=== PATIENT | female | born 1960 | race Caucasian/White ===

== ENCOUNTER → 2016-12-09 | Outpatient (REF) ==
[2016-12-09 07:42] LABS: MEAN CORPUSCULAR HEMOGLOBIN 29.5 pg (27.0-33.0); MEAN CORPUSCULAR HGB CONC 33.1 g/dl (32.0-36.5); RED CELL DISTRIBUTION WIDTH 12.8 % (11.5-14.5); WHITE BLOOD COUNT 7.3 K/mm3 (4.0-10.0)
[2016-12-09 08:11] LABS: ANION GAP 5 MEQ/L (8-16); BLOOD UREA NITROGEN 13 MG/DL (7-18); CARBON DIOXIDE LEVEL 27 MEQ/L (21-32); CHLORIDE LEVEL 106 MEQ/L (98-107); CHOLESTEROL LEVEL 221 MG/DL (<200); CREATININE FOR GFR 0.71 MG/DL (0.55-1.02); GLOMERULAR FILTRATION RATE > 60.0 (>51); GLUCOSE, FASTING 93 MG/DL (70-105); POTASSIUM SERUM 4.8 MEQ/L (3.5-5.1); SODIUM LEVEL 138 MEQ/L (136-145); TRIGLYCERIDES LEVEL 96 MG/DL (<150)
--- NOTE | 2016-12-09 08:17 | REP ---
Clinical: Employee health annual physical . Comparison: 03/02/2016 . Technique: PA and lateral. Findings: The mediastinum and cardiac silhouette are normal. The lung yu are clear and without acute consolidation, effusion, or pneumothorax. The skeletal structures are intact and normal. Impression: 1. No acute cardiopulmonary process. Signed by Mikel Brown MD 12/09/2016 08:09 A
[2016-12-09 10:01] LABS: HEPATITIS B SURFACE ANTIBODY POSITIVE (POSITIVE)
--- NOTE | 2016-12-10 01:02 | ECGEPIP ---
Stationary ECG Study [facility] Test Date: 2016-12-09 Pat Name: BRIAN CHARLES Department: Room: - Gender: F Compliance Representative: JOAN : 1960 Requested By: Susan Srivastava PT Order Number: [id number] Reading MD: Liam James Measurements Intervals [place] Rate: 85 P: 29 NM: 170 QRS: -5 QRSD: 103 T: 51 QT: 386 QTc: 460 Interpretive Statements SINUS RHYTHM INFERIOR MYOCARDIAL INFARCTION, OF INDETERMINATE AGE Possible prior anteroseptal infarct Compared to the last 2 tracings, no significant changes Electronically Signed On 12-10-2016 1:02:24 EDT by Liam James
== END ==
LOC: M LAB 06:50
PROVIDERS: ATTEND Physical Therapist
DX: Z02.1 Encounter for pre-employment examination (principal); I25.2 Old myocardial infarction; R94.31 Abnormal electrocardiogram [ECG] [EKG]

== ENCOUNTER 2017-01-22 06:12 | Day surgery (SDC) | payer OTHER ==
[~2017-01-22] VITALS: Ht 162.6 cm; Wt 74.8 kg
[~2017-01-22 06:12] MED LIST: LISI40TAB PO
[2017-01-22] MEDS ORDERED: LR 1,000 ML IV SCH (06:30)
[2017-01-22] MEDS ORDERED: LIDOCAINE 2% MDV 20 ML VIAL As Ordered ONE (06:36)
[2017-01-22] MEDS ORDERED: BACITRACIN PWD 50,000 UNITS VIAL As Ordered ONE (06:37)
[2017-01-22] MEDS ORDERED: dexameTHASONE 4 MG/ML 1ML VIAL (J1100) As Ordered ONE ×2 (06:37→08:03)
[2017-01-22] MEDS ORDERED: BUPIVACAINE HCL 0.5% 30 ML VIAL As Ordered ONE (06:37)
[2017-01-22] MEDS ORDERED: NEOSPORIN GU IRRIG 20 ML VIAL As Ordered ONE (06:37)
[2017-01-22] MEDS ORDERED: PROPOFOL 200 MG/20 ML VIAL As Ordered ONE ×2 (07:23→08:59)
[2017-01-22] MEDS ORDERED: fentaNYL 100 MCG/2 ML INJECTION (J3010) As Ordered ONE (07:24)
[2017-01-22] MEDS ORDERED: MIDAZOLAM INJ 2 MG/2 ML VIAL (J2250) As Ordered ONE (07:24)
[2017-01-22] MEDS ORDERED: KETAMINE HCL 200 MG/20 ML VIAL As Ordered ONE (07:38)
[2017-01-22] MEDS ORDERED: ONDANSETRON 4MG/2ML VIAL (J2405) As Ordered ONE (08:03)
[2017-01-22] MEDS ORDERED: KETOROLAC 60 MG/2 ML VIAL (J1885) As Ordered ONE (08:03)
[2017-01-22] MEDS ORDERED: PHENYLephrine HCL 500 MCG/5 ML (100MCG/ML) SYRINGE (J2370) As Ordered ONE (08:28)
[2017-01-22] MEDS ORDERED: ePHEDrine SULFATE 25 MG/5 ML(5MG/ML) SYRINGE As Ordered ONE (08:31)
[2017-01-22] MEDS ORDERED: HYDROmorphone HCL 2 MG/ML 1ML VIAL (J1170) As Ordered ONE (09:18)
[2017-01-22] MEDS ORDERED: PERCOCET 5MG/325MG TAB PO PRN (10:30)
[2017-01-22 11:30] VITALS: BP 131/89
--- NOTE | 2017-01-22 11:43 | REP ---
REASON: Status post bunionectomy. There is an internal fixation plate with affixing screws fusing the 1st tarsometatarsal joint. Postop change is seen involving the head of the 1st metatarsal. There is a fixation pin affixing the middle and proximal phalanges of the 2nd digit and a derotational osteotomy screw seen in the head of the 2nd metatarsal. Signed by Edvin Nunez DO 01/22/2017 01:57 P
--- NOTE | 2017-01-24 09:41 | RO ---
DATE OF PROCEDURE: 01/22/2017 PREOPERATIVE DIAGNOSES: 1. Bunion deformity left foot. 2. Long 2nd metatarsal left foot. 3. Hammertoe deformity 2nd toe left foot. 4. Hammertoe deformity 4th toe left foot. POSTOPERATIVE DIAGNOSES: 1. Bunion deformity left foot. 2. Long 2nd metatarsal left foot. 3. Hammertoe deformity 2nd toe left foot. 4. Hammertoe deformity 4th toe left foot. SURGEON: Marcelino Phillip DPM LOADING DOCK HELPER: None. PROCEDURES PERFORMED: ANESTHESIA: Local monitored anesthesia care (MAC). ESTIMATED BLOOD LOSS: Less than 10 mL. HEMOSTASIS: Ankle pneumatic tourniquet at 200 mmHg for 107 minutes. DRAINS UTILIZED: None. HARDWARE UTILIZED: Clement Lapidus plate size 0, DigiFuse 2.0 x 10 degree angled, and nonlocking screws 3.5 x 16, 3.5 x 18, and a 2.7 x 18 times two, and a Dart-Fire 3.5 x 32 mm and a 2.5 x 14 mm. DESCRIPTION OF OPERATION: On 01/22/2017, this 56-year-old female was taken from her hospital room to the operating room and placed on the operating table in the supine position. Following the induction of intravenous (IV) sedation and local and regional anesthesia, the left lower extremity was prepped and draped in the usual aseptic manner. Sterile draping was completed, and after the tourniquet was rapidly inflated to 200 mmHg, the following procedure was performed: LAPIDUS BUNIONECTOMY WITH PLATE AND SCREW FIXATION, LEFT FOOT: Attention was directed to the patients left foot. There was noted to be a hallux valgus deformity. At this time, an incision was made from the 1st metatarsal cuneiform joint to just distal to the 1st metatarsal phalangeal joint medial to the extensor tendon. The incision was deepened through subcutaneous tissues, and all coursing venous tributaries were identified, underscored, clamped, cut, ligated, and electrocoagulated as necessary. A linear capsulotomy was performed in the same plane as the original skin incision, and the capsular structures were dissected dorsally, medially, and laterally. Spurring was noted on the dorsal and lateral surfaces of the 1st metatarsal, as well as the proximal phalanx. Utilizing a power saw, an osteotomy was performed through the 1st metatarsal spur and as well as the proximal phalanx spur, and this was contoured with a rongeur and filed with a handheld rasp. The wound was flushed with copious amounts of dilute bacitracin, neomycin, and polymyxin B solution. The medial eminence was then osteotomized with a power saw from distal to proximal through and through, exiting medially to the sesamoidal groove. Dissection was then carried into the 1st intermetatarsal space, where dissection was carried down to the level of the fibular sesamoid and the conjoin tendon were sharply dissected free from the fibular sesamoid. Attention was then directed proximally to the 1st metatarsal cuneiform joint, where a linear incision was placed over the 1st metatarsal cuneiform joint. Utilizing a periosteal elevator, taking care to preserve the attachment of the tibialis anterior, as well as the peroneal longus tendon, an osteotomy was then performed just encompassing the articular cartilage with the exception of slightly more taking on the lateral side to create a wedge to reduce the 1st intermetatarsal angle. This was then removed. The 1st metatarsal cuneiform joint was then fenestrated, and the wound was flushed with copious amounts of dilute bacitracin, neomycin, and polymyxin B solution. The 1st intermetatarsal angle was then reduced; and utilizing a 1.1 wire, a temporary fixation was put across the 1st and 2nd metatarsal. A 3.5 x 32 mm compression screw was then placed across the 1st metatarsal cuneiform joint with good compression at the osteotomy site. A size 0 Lapidus plate was then contoured to the 1st metatarsal cuneiform joint medially, and this was fixated proximally with a 3.5 x 16 and a 3.5 x 18 mm nonlocking screws; and the distal segment was fixated with a 2.7 x 18 and a 2.7 x 18 mm nonlocking screws. Intraoperative C arm imagery revealed good reduction of the 1st intermetatarsal angle with good position of the sesamoids. The wound was flushed with copious amounts of dilute bacitracin, neomycin, and polymyxin B solution. Closure was obtained with 2-0 Monocryl in a simple interrupted type fashion. Subcutaneous tissues were coapted and maintained utilizing 4-0 Monocryl in a simple interrupted type fashion. The skin was left for later closure at the end of the procedure. Attention was then directed to the 2nd metatarsal, where the following procedure was performed: SHORTENING 2ND METATARSAL OSTEOTOMY WITH INTERNAL SCREW FIXATION: An incision was placed in the 2nd intermetatarsal space extending into the web space measuring approximately 3 mm in length. Dissection was then carried dorsally over the metatarsal, and the extensor tendons were split and and then retracted in a medial lateral direction, and a linear capsulotomy was performed over the 2nd metatarsophalangeal joint. A metatarsal elevator was used to free the plantar plate. A Mac osteotomy was then performed, starting at the articular cartilage of the 2nd metatarsal, paralleling the plantar surface of the foot. The metatarsal was shortened approximately 5 mm and fixated with a 2.5 x 14 mm compression screw. The dorsal ledge was then rongeured smooth and then filed with a handheld rasp. The wound was flushed with copious amounts of dilute bacitracin, neomycin, and polymyxin B solution. Attention was directed to the 2nd toe, where two transverse semi-elliptical incisions were placed over the proximal phalangeal joint, and a skin wedge was removed. Transverse tenotomy and capsulotomy were performed at the level of the proximal interphalangeal joint. Medial and lateral and collateral ligaments were resected from the proximal phalanx; and utilizing the power saw, an osteotomy was performed dorsally, medially, and laterally with the head of the 2nd proximal phalanx removed. The base of the middle phalanx was then osteotomized encompassing the articular cartilage. Utilizing a 2.0 x 10 degree angle DigiFuse, a DigiFuse was placed across the proximal interphalangeal joint. The wound was flushed with copious amounts of dilute bacitracin, neomycin, and polymyxin B solution. The extensor tendon was coapted and maintained with a 2-0 nylon loop suture and a four-stranded modified Sousa repair. The periosteum over the 2nd metatarsophalangeal joint was coapted and maintained with 2-0 Monocryl in a simple interrupted type fashion. The skin was planned for later closure. Attention was then directed to the patient's 5th toe, where the following procedure was performed: PROXIMAL INTERPHALANGEAL JOINT ARTHROPLASTY 5TH TOE, LEFT FOOT: Attention was directed to the patient's 5th toe of the left foot, where the procedure performed on the 2nd toe was now performed on the 5th toe, with the following variations. Instead of a 2 cm elliptical transverse incision, a linear incision was placed over the proximal interphalangeal joint. No DigiFuse was used for fixation. The cartilage was not removed from the base of the middle phalanx. No other variations or deletions were noted. The skin was closed on the 2nd and 5th toes with 4-0 Prolene in a simple interrupted and horizontal mattress type fashion. The skin was closed on the 1st metatarsal region with 4-0 Prolene suture in a simple interrupted and horizontal mattress type fashion. The skin was closed on the 2nd metatarsal osteotomy with 4-0 Prolene in a simple interrupted and horizontal mattress type fashion. Skin closure was obtained with release of the tourniquet, and there was instantaneous capillary filling time of the left foot. Attention was then directed towards bandaging, where 4 mm of dexamethasone sodium phosphate was instilled around the area of the sesamoid and 2nd metatarsophalangeal joint. Bandaging consisted of Adaptic, 4 x 4's, 4 x 4 splints, Jaimie Carvalho, a Lane compressive dressing with a posterior splint were then applied. The patient, having apparently tolerated the surgical procedure well, was taken from the operating room (OR) to the recovery room with vital signs stable, patient afebrile, further monitoring by the anesthesia department. All surgical specimens removed during the operative procedure were sent to pathology for gross and microscopic examination. Postoperative instructions will given upon discharge.
== END 2017-01-22 11:54 | disposition home or self-care (01) ==
LOC: M SDC 06:12
PROVIDERS: ATTEND Podiatrist
DX: M21.612 Bunion of left foot (principal); M20.42 Other hammer toe(s) (acquired), left foot; M79.672 Pain in left foot; M20.12 Hallux valgus (acquired), left foot; I10 Essential (primary) hypertension; K21.9 Gastro-esophageal reflux disease without esophagitis; E78.00 Pure hypercholesterolemia, unspecified; Z78.0 Asymptomatic menopausal state; Z79.899 Other long term (current) drug therapy
CPT/HCPCS: 28285; 28297; 28308; 73630; 73660; 88300; C1776; J0690; J1100; J1170; J1885; J2250; J2370; J2405; J3010

== ENCOUNTER 2017-05-17 01:00 | Inpatient (IN) | payer OTHER ==
[~2017-05-17] VITALS: Ht 162.6 cm; Wt 75.9 kg
[2017-05-17] MEDS ORDERED: ASPI81TA85 PO (01:57)
[2017-05-17 02:20] VITALS: BP 180/88
[2017-05-17] MEDS ORDERED: ACETAMINOPHEN TAB 650MG DOSE (2X325MG) PO PRN (02:30)
[2017-05-17] MEDS ORDERED: ONDANSETRON 4MG/2ML VIAL (J2405) IV PRN (02:30)
[2017-05-17] MEDS: HYDROmorphone HCL 1 MG/ML SYRINGE (J1170) IV PRN ×2 (02:32→08:01)
[2017-05-17] MEDS: NS 1,000 ML IV SCH ×2 (02:54→14:23)
[2017-05-17] MEDS: CIPROFLOXACIN 400 MG in APPROPRIATE DILUENT 1 EA IV SCH ×2 (02:54→14:23)
--- NOTE | 2017-05-17 03:04 | HPE ---
DATE OF ADMISSION: 05/17/2017 The patient, Aggie Grover, is a 57-year-old female. Patient comes in with chief complaint of abdominal pain. HISTORY OF PRESENT ILLNESS: Patient is a transfer from [facility] where she was found to have choledocholithiasis on ultrasound. Therefore, gastrointestinal (GI) was contacted. Our GI recommended transfer and admission for possible endoscopic retrograde cholangiopancreatography (ERCP). Patient says onset of pain was Wednesday, progressively worsening until the point where she no longer could deal with it. Patient initially thought she might be having a negative reaction to a cream she is taking for a recent foot surgery; however, when she got to the emergency department (ED) and they did the imaging, she realized what the results were. Ultrasound report was not sent in the packet that I can see; however, I may have missed it. I do not see it in the package. PREVIOUS MEDICAL HISTORY: Patient has a history of hypertension. FAMILY HISTORY: Father with coronary artery disease and mother who of breast cancer. Patient is a nonsmoker, non-drinker, does not use drugs. Patient's home medications include lisinopril and aspirin. Patient's primary medical doctor (PMD) is Dr. Efrain Quintana. REVIEW OF SYSTEMS: On full 10-system review, patient's only other acute complaint is nausea, which is helped by Zofran. Patient also noted that her pain was helped by Dilaudid very much in [place]. LABORATORY RESULTS: In [place] show WBC of 15.5, hemoglobin and hematocrit and platelets within normal limits. However, patient's liver enzymes were significantly elevated with AST of 602, ALT of 764, anion gap 17.0, total bilirubin of 4.7, ALT of 230. Patient's lactic acid was also found to be 1.5 as per sign out from the doctor in [place]. Patient's vital signs on admission were 99.4 temperature, 180/88 blood pressure, and 97% on room air saturation with a heart rate of 68. Patient is alert and oriented times three with normal affect, normal mood. Cranial nerves II-XII grossly intact. Extraocular movements intact. Pupils equal and reactive to light and accommodation. Head is normocephalic, atraumatic. Neck is supple with good range of motion. No meningeal signs. No apparent lymphadenopathy. S1, S2, regular rate. No murmur, rub or gallop. Good inspiratory, expiratory effort. No wheezes, rhonchi or rales. Abdomen is soft, however, tender to palpation. Most tender in the epigastric area. Some tenderness on the right side, however, otherwise no significant tenderness to palpation. Patient's all four major extremities are 5/5 with no loss of range of motion and good strength. Patient's skin is warm and dry. ASSESSMENT AND PLAN: Patient for possible endoscopic retrograde cholangiopancreatography (ERCP) tomorrow morning. Gastrointestinal (GI) to evaluate in the morning. They are already informed from [place] and are aware of the case. Patient to remain nothing by mouth. CiproEmily. Intravenous (IV) fluids. Pain control with Dilaudid 0.4 every three. Nausea to be treated with Zofran. No anticoagulant chemically for deep venous thrombosis (DVT) prophylaxis. Patient for possible procedure, also ambulatory. Gastrointestinal (GI) prophylaxis with proton pump inhibitors (PPIs).
[2017-05-17] MEDS: metroNIDAZOLE 500 MG in APPROPRIATE DILUENT 1 EA IV SCH ×4 (04:21→22:21)
[2017-05-17 06:58] LABS: BASO % 0.3 % (0.0-1.0); EOS % 0.3 % (0.0-3.0); IMMATURE GRANULOCYTE % 0.5 % (0-0); LYMPH # 1.2 10^3/uL (1.5-4.5); LYMPH % 9.1 % (24.0-44.0); MEAN CORPUSCULAR HEMOGLOBIN 28.6 pg (27.0-33.0); MEAN CORPUSCULAR HGB CONC 33.2 g/dl (32.0-36.5); MEAN CORPUSCULAR VOLUME 86.2 fl (80.0-96.0); MONO # 1.4 10^3/uL (0.0-0.8); MONO % 10.6 % (0.0-5.0); NEUTROPHILS # 10.3 10^3/uL (1.8-7.7); NEUTROPHILS % 79.2 % (36.0-66.0); PLATELET COUNT, AUTOMATED 272 10^3/uL (150-450); RED CELL DISTRIBUTION WIDTH 13.2 % (11.5-14.5)
[2017-05-17 07:09] LABS: INR 0.97
[2017-05-17 07:23] LABS: ALBUMIN 3.1 GM/DL (3.2-5.2); ALBUMIN/GLOBULIN RATIO 0.97 (1.00-1.93); ALKALINE PHOSPHATASE 206 U/L (45-117); ALT/SGPT 893 U/L (12-78); ANION GAP 6 MEQ/L (8-16); AST/SGOT 549 U/L (7-37); BILIRUBIN,TOTAL 5.5 MG/DL (0.2-1.0); BLOOD UREA NITROGEN 11 MG/DL (7-18); CALCIUM LEVEL 8.6 MG/DL (8.5-10.1); CARBON DIOXIDE LEVEL 28 MEQ/L (21-32); CHLORIDE LEVEL 106 MEQ/L (98-107); CREATININE FOR GFR 0.68 MG/DL (0.55-1.02); GLOMERULAR FILTRATION RATE > 60.0 (>51); GLUCOSE, FASTING 106 MG/DL (70-105); POTASSIUM SERUM 3.8 MEQ/L (3.5-5.1); SODIUM LEVEL 140 MEQ/L (136-145); TOTAL PROTEIN 6.3 GM/DL (6.4-8.2)
[2017-05-17 08:00] VITALS: BP 115/79
--- NOTE | 2017-05-17 09:11 | REP ---
Clinical: Acute abdominal pain. Technique: Lynch scale ultrasound using curved array transducer. Findings: Gallbladder demonstrates multiple gallstones, wall thickening to 5 mm, and pericholecystic fluid along with a positive sonographic Oseguera's sign consistent with acute cholecystitis. No biliary ductal dilatation is appreciated and the common bile duct measures 5.8 mm diameter. Mild fatty infiltration to the liver is appreciated without focal hepatic lesion identified. The pancreas is unremarkable. The right kidney is normal in reniform shape without hydronephrosis and measures 11.1 x 5.5 x 6.1 cm with 1.1 cm upper pole and 1.9 cm mid pole cysts. No ascites. Visualized abdominal aorta normal. Impression: Findings compatible with acute cholecystitis. Mild hepatosteatosis. Signed by Mikel Brown MD 05/17/2017 09:02 A
[2017-05-17] MEDS: PANTOPRAZOLE 40MG INJ (PROTONIX) (C9113) IV SCH (09:44)
[2017-05-17 16:00] VITALS: BP 137/80
[2017-05-17 17:48] LABS: MEAN CORPUSCULAR HEMOGLOBIN 28.5 pg (27.0-33.0); MEAN CORPUSCULAR HGB CONC 32.5 g/dl (32.0-36.5); MEAN CORPUSCULAR VOLUME 87.5 fl (80.0-96.0); PLATELET COUNT, AUTOMATED 259 10^3/uL (150-450); RED CELL DISTRIBUTION WIDTH 13.3 % (11.5-14.5); WHITE BLOOD COUNT 8.2 10^3/uL (4.0-10.0)
[2017-05-17 19:26] LABS: ALBUMIN/GLOBULIN RATIO 1.03 (1.00-1.93); ALKALINE PHOSPHATASE 224 U/L (45-117); ALT/SGPT 857 U/L (12-78); ANION GAP 8 MEQ/L (8-16); AST/SGOT 397 U/L (7-37); BILIRUBIN,TOTAL 5.6 MG/DL (0.2-1.0); BLOOD UREA NITROGEN 12 MG/DL (7-18); CALCIUM LEVEL 8.6 MG/DL (8.5-10.1); CARBON DIOXIDE LEVEL 28 MEQ/L (21-32); CHLORIDE LEVEL 105 MEQ/L (98-107); CREATININE FOR GFR 0.71 MG/DL (0.55-1.02); GLOMERULAR FILTRATION RATE > 60.0 (>51); GLUCOSE, FASTING 83 MG/DL (70-105); SODIUM LEVEL 141 MEQ/L (136-145); TOTAL PROTEIN 5.9 GM/DL (6.4-8.2)
[2017-05-17 20:00] VITALS: BP_SYST 156; BP_SYST 56; BP_DIAS 86
--- NOTE | 2017-05-17 20:20 | REP ---
MRCP examination without contrast: History: Gallstones. Biliary colic. Question common bile duct stone. Comparison study: Comparison sonography May 17, 2017 . Technique: Coronal and T2 TRUE FISP and axial T2 HASTE the imaging sequences are acquired. In addition, MRCP acquisition is acquired and maximum intensity projection images are generated and displayed rotationally. Source coronal images are reviewed. MRCP findings: The study confirms the presence of multiple heterogeneous gallstones as filling defects in the gallbladder lumen. There is at least one large stone measuring 1.6 cm in diameter but multiple small stones are seen, 3 to 4 mm in diameter. There is diffuse pericolic cystic edema and there is gallbladder wall thickening. This is moderate in degree and may reflect acute cholecystitis. In addition, there is periportal edema extending into the periportal and perivascular spaces in the liver. No liver mass lesion is seen. Intra and extrahepatic bile ducts are normal in caliber. The common bile duct shows no evidence of choledocholithiasis or pathologic dilation. It measures 0.5 cm in greatest diameter. The pancreatic ducts are not dilated. The main pancreatic duct appears to drain into the minor papilla where as the ventral pancreatic duct drains in the major papilla with the common bile duct. This is compatible with pancreas divisum. Impression: Normal common bile and pancreatic duct caliber. Findings suggestive of pancreas divisum. Periportal edema pattern. This is nonspecific and can be seen in acute hepatitis, congestive heart failure, post hepatic trauma and with cholangitis. Cholelithiasis is also noted with marked pericholecystic edema and wall thickening. Signed by Abhinav Cerrato MD 05/17/2017 08:37 P
[2017-05-17] MEDS: LISINOPRIL 40 MG TAB PO SCH (21:39)
--- NOTE | 2017-05-17 23:40 | CR.PDOC ---
[facility] Consultation Consultation DATE OF CONSULTATION: 05/17/2017. patient examined at 9:00 AM and then again in afternoon around 3 PM. Primary physician/ hospitalist: Nereida Shi PMD: Dr. Efrain Quintana. Reason for consult: Abnormal LFTs. 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 Patient was transferred to [facility] with the impression of possible choledocholithiasis. Patient was admitted by hospitalist and repeat labs showed elevated bilirubin and transaminases. GI was consulted for the same. Patient reports having intermittent epigastric and right upper quadrant abdominal pain for a long time, associated with nausea and vomiting. Current episode started on Wednesday with worsening abdominal pain. Patient denies any fever, sick contacts , recent travel, heavy alcohol use, OTC medication use, herbal supplements. Pertinent negative GI symptoms: Patient denies diarrhea, loss of appetite, early satiety or unintentional weight loss. No history of hematemesis, melena or hematochezia. Patient reports regular bowel movements. Review of Systems: GI: as stated above CVS: No chest pain, No palpitations, No leg swelling. RS: No Shortness of breath, No Wheezing, no cough AS400 ANALYST: No dizziness, No motor weakness, No sensory problems Hematology: No bruising, No gum bleeding, Musculoskeletal: No joint pain, ambulating well. Skin: No rash : No hematuria, No burning sensation of the urine ENT: No ear discharge/ pain, No dysphagia. Eyes: No photophobia. Home medications: reviewed. Antithrombotic agents -none Medical h/o: As above. Surgical h/o: None on abdomen. Social h/o: Alcohol - social, smoking - denies, IVDA/ drugs- Denies Family h/o of GI cancers - None Prior Endoscopies: --- EGD none --- Colonoscopy- none in the past but she has an appointment to see Dr. Mcmullen to schedule one. Prior GI evaluation: None Exam: Vitals: reviewed General: Alert and oriented x 3, not in distress HEENT: NO pallor, no icterus. Normal oropharynx, NO cervical lymph nodes. Chest: symmetric with bilateral clear air entry, CVS: S1, S2 heard, normal, no murmurs . Abdomen: non-distended, no surgical scars, soft, tenderness in epigastric area and right upper quadrant, no rigidity and no guarding, no palpable masses, normal bowel sounds heard. Extremities: no pedal edema, pulses palpable. AS400 ANALYST: no focal motor or sensory deficits. Moves all extremities Skin: no rash. Labs: reviewed. Imaging: reviewed USG abdomen: Done in [facility] showed normal CBD with severe cholecystitis and cholelithiasis. Addendum: patiennt also underwent MRCP today ( as per surgeon) -- which also did not show any CBD stones and normal Intra and extrahepatic ducts but showed cholecystitis. ( detailed report in [facility] Impression: - Epigastric and right upper quadrant Abdominal pain with Abnormal LFTs and nausea and vomiting -- with the normal CBD, intra- and extrahepatic ducts on USG abdomen -- need to rule out acute cholecystitis versus hepatitis versus possible CBD stone. Less likely distal CBD stone. Recommendations: - Patient educated about the test results, possible differential diagnoses and All questions answered. - Due to abnormal LFTs and the clinical presentation, there is still suspicion for possible distal CBD stone and patient was explained in detail about the need for ERCP. - The procedure, indications, risks (acute pancreatitis, and its complications, bleeding, perforation, infection, hypotension, respiratory depression, allergy, need for endotracheal intubation, urgery, colostomy, cardiac arrest, even ) , benefits, limitations, and all other alternatives (including no intervention) were explained to the patient who verbalized understanding but refused to undergoing ERCP procedure. Patient verbalized understanding of the risks of not undergoing procedure. - Upon further discussion with surgeons patient agreed to undergo MRCP. I did discuss with the patient about the ultrasound findings after reviewing with the radiology. - We will follow MRCP results and serial LFTs. - Continue IV fluids and pain medications as needed. - Antibiotics for acute cholecystitis. - We will obtain acute hepatitis workup and autoimmune workup. Addendum: MRCP results reviewed. but the repeat LFTs continued to be elevated. Will follow up clinically. Plan of care discussed with patient and primary team. Patient verbalized understanding and agreed with the plan. Allergies Coded Allergies: No Known Allergies (Unverified , 01/18/17) Home Medications Scheduled Aspirin (Aspir-81) 81 Mg Tab, 81 MG PO DAILY, (Reported) Lisinopril (Lisinopril) 40 Mg Tab, 40 MG PO QHS, (Reported) CHANDRALA,MIRANDA K. MD May 17, 2017 18:18
[2017-05-18] VITALS: BP 127/83
[2017-05-18] MEDS: CIPROFLOXACIN 400 MG in APPROPRIATE DILUENT 1 EA IV SCH ×2 (02:44→14:08)
[2017-05-18] MEDS: NS 1,000 ML IV SCH ×2 (02:44→16:23)
[2017-05-18] MEDS: metroNIDAZOLE 500 MG in APPROPRIATE DILUENT 1 EA IV SCH ×4 (05:03→21:02)
[2017-05-18 05:41] VITALS: BP 127/78
[2017-05-18 06:15] VITALS: BP 136/85
[2017-05-18 08:10] LABS: BASO # 0.1 10^3/uL (0.0-0.2); BASO % 0.5 % (0.0-1.0); EOS # 0.1 10^3/uL (0.0-0.50); EOS % 1.3 % (0.0-3.0); IMMATURE GRANULOCYTE % 0.4 % (0-0); LYMPH # 2.1 10^3/uL (1.5-4.5); LYMPH % 20.4 % (24.0-44.0); MEAN CORPUSCULAR HEMOGLOBIN 28.4 pg (27.0-33.0); MEAN CORPUSCULAR HGB CONC 33.2 g/dl (32.0-36.5); MEAN CORPUSCULAR VOLUME 85.7 fl (80.0-96.0); MONO # 0.8 10^3/uL (0.0-0.8); MONO % 7.4 % (0.0-5.0); NEUTROPHILS # 7.1 10^3/uL (1.8-7.7); WHITE BLOOD COUNT 10.1 10^3/uL (4.0-10.0)
[2017-05-18 08:29] LABS: ALBUMIN 3.1 GM/DL (3.2-5.2); ALBUMIN/GLOBULIN RATIO 0.94 (1.00-1.93); ALKALINE PHOSPHATASE 272 U/L (45-117); ALT/SGPT 727 U/L (12-78); ANION GAP 11 MEQ/L (8-16); AST/SGOT 230 U/L (7-37); BILIRUBIN,TOTAL 3.7 MG/DL (0.2-1.0); BLOOD UREA NITROGEN 11 MG/DL (7-18); CALCIUM LEVEL 8.4 MG/DL (8.5-10.1); CARBON DIOXIDE LEVEL 23 MEQ/L (21-32); CHLORIDE LEVEL 106 MEQ/L (98-107); CREATININE FOR GFR 0.59 MG/DL (0.55-1.02); GLOMERULAR FILTRATION RATE > 60.0 (>51); GLUCOSE, FASTING 77 MG/DL (70-105); POTASSIUM SERUM 3.7 MEQ/L (3.5-5.1); SODIUM LEVEL 140 MEQ/L (136-145); TOTAL PROTEIN 6.4 GM/DL (6.4-8.2)
[2017-05-18 08:50] LABS: PLATELET COUNT, AUTOMATED 255 10^3/uL (150-450); PLT CLUMPS? POS FLAG; POS COUNT POS FLAG
[2017-05-18] MEDS: PANTOPRAZOLE 40MG INJ (PROTONIX) (C9113) IV SCH (09:33)
[2017-05-18 14:00] VITALS: BP 136/84
[2017-05-18] MEDS: ALPRAZolam 0.25 MG TAB PO PRN ×2 (14:08→22:22)
--- NOTE | 2017-05-18 19:05 | IPN ---
DATE: 05/18/2017 SUBJECTIVE: Patient seen and examined in the room today. Patient stated since placed on nothing by mouth , IV support her symptoms show some improvements. Patient is interested to know about her results and possible upcoming procedures. Patients MRCP results were discussed. All questions were answered. OBJECTIVE: VITAL SIGNS: Temperature 99.1, pulse 74, respiration rate 18, blood pressure 136/85, pulse ox 97% on room air. GENERAL: Anxious and no sign of acute distress. Alert and oriented times three. HEENT: Normocephalic, atraumatic. Oral mucosa is intact. CARDIOVASCULAR: Positive S1, S2, regular rate. LUNGS: Clear to auscultation bilaterally. ABDOMEN: Tenderness in the epigastric region and right upper quadrant. Bowel sounds are present. EXTREMITIES: No edema. No signs of cyanosis. LABORATORY DATA: WBC 10.1, hemoglobin 13.1, hematocrit 39.5, platelet 255. Sodium 140, potassium 0.7, chloride 106, carbon dioxide 23m BUN 11, creatinine 0.59, GFR greater than 60, fasting glucose 77, calcium 8.4, total bilirubin 3.7, AST 230, ALT 727, alkaline phos 272, total protein 6.4, albumin 3.1, lipase 115. ASSESSMENT AND PLAN: 1. Abdominal pain. Patient had an MRCP. Results show cholelithiasis with marked pericholecystic edema and wall thickening. GI specialist in surgery was consulted. Currently patient is nothing by mouth IV support. We will refer to surgical team for possible future procedures. Antiobiotic Cipro and Flagyl. Patient is currently on Dilaudid for pain control. 2. History of hypertension. Blood pressure is stable. Continue on lisinopril. 3. Anxiety. Patient has as needed Xanax. 4. Deep venous thrombosis prophylaxis. TEDS and compression stockings for anticoagulation at this moment for possible future procedures.
[2017-05-18] MEDS: LISINOPRIL 40 MG TAB PO SCH (21:02)
[2017-05-18 21:31] VITALS: BP 131/79
[2017-05-19] MEDS: CIPROFLOXACIN 400 MG in APPROPRIATE DILUENT 1 EA IV SCH (03:08)
[2017-05-19] MEDS: metroNIDAZOLE 500 MG in APPROPRIATE DILUENT 1 EA IV SCH ×2 (04:14→09:45)
[2017-05-19] MEDS: NS 1,000 ML IV SCH (04:30)
[2017-05-19 06:18] VITALS: BP 130/71
[2017-05-19 07:23] LABS: BASO # 0.1 10^3/uL (0.0-0.2); BASO % 0.5 % (0.0-1.0); EOS # 0.2 10^3/uL (0.0-0.50); EOS % 1.8 % (0.0-3.0); IMMATURE GRANULOCYTE % 0.3 % (0-0); LYMPH # 2.1 10^3/uL (1.5-4.5); LYMPH % 22.2 % (24.0-44.0); MEAN CORPUSCULAR HEMOGLOBIN 28.2 pg (27.0-33.0); MEAN CORPUSCULAR HGB CONC 33.2 g/dl (32.0-36.5); MEAN CORPUSCULAR VOLUME 85.1 fl (80.0-96.0); MONO # 0.7 10^3/uL (0.0-0.8); MONO % 7.7 % (0.0-5.0); NEUTROPHILS # 6.5 10^3/uL (1.8-7.7); NEUTROPHILS % 67.5 % (36.0-66.0); PLATELET COUNT, AUTOMATED 299 10^3/uL (150-450); RED CELL DISTRIBUTION WIDTH 12.9 % (11.5-14.5); WHITE BLOOD COUNT 9.6 10^3/uL (4.0-10.0)
[2017-05-19 07:56] LABS: ALBUMIN 2.8 GM/DL (3.2-5.2); ALBUMIN/GLOBULIN RATIO 0.97 (1.00-1.93); ALKALINE PHOSPHATASE 235 U/L (45-117); ALT/SGPT 447 U/L (12-78); ANION GAP 8 MEQ/L (8-16); AST/SGOT 66 U/L (7-37); BILIRUBIN,TOTAL 1.3 MG/DL (0.2-1.0); BLOOD UREA NITROGEN 8 MG/DL (7-18); CALCIUM LEVEL 8.1 MG/DL (8.5-10.1); CARBON DIOXIDE LEVEL 25 MEQ/L (21-32); CHLORIDE LEVEL 109 MEQ/L (98-107); CREATININE FOR GFR 0.58 MG/DL (0.55-1.02); GLOMERULAR FILTRATION RATE > 60.0 (>51); GLUCOSE, FASTING 105 MG/DL (70-105); POTASSIUM SERUM 3.4 MEQ/L (3.5-5.1); SODIUM LEVEL 142 MEQ/L (136-145); TOTAL PROTEIN 5.7 GM/DL (6.4-8.2)
[2017-05-19 08:00] VITALS: BP 141/89
[2017-05-19] MEDS: PANTOPRAZOLE 40MG INJ (PROTONIX) (C9113) IV SCH (08:22)
[2017-05-19] MEDS ORDERED: FLAG500T PO (11:46)
[2017-05-19] MEDS ORDERED: CIPR-249 PO (11:46)
[2017-05-22 00:08] LABS: HEPATITIS E IgM ANTIBODY Negative (Negative)
--- NOTE | 2017-05-27 07:06 | DSES ---
DATE OF ADMISSION: 05/17/2017 DATE OF DISCHARGE: 05/19/2017 CONSULTANTS: Gastroenterology specialist: Dr. Diaz, general surgery consultation. DISCHARGE DIAGNOSES: 1. Abdominal pain possibly due to acute cholecystitis. 2. Hypertension with anxiety. HOSPITAL COURSE: The patient is a 57-year-old female who was transferred from [facility] to [facility] on April for abdominal pain with ultrasound finding of choledocholithiasis. The patient was admitted under the medicine service and gastrointestinal (GI) specialist Dr. Diaz consulted. Magnetic Resonance Cholangiopancreatography (MRCP) was performed. Endoscopic retrograde cholangiopancreatography (ERCP) was mentioned to the patient; however the patient has requested general surgery involvement for a cholecystectomy. The patient wishes were expressed to the surgeon. The patient was evaluation by Dr. Mcmullen who recommended continue with empiric antibiotics and pain control and the patient will be followed by Dr. Mcmullen at this scheduled time. The procedure can be arranged in the outpatient setting. The patient agreed with the plan and therefore on May 18, 2017 the patient is discharged home with the recommendation to continue with the empiric antibiotics and the patient has a scheduled appointment with Dr. Mcmullen. Vital signs on discharge: On the day of discharge temperature was 98.6, pulse 76, respirations 16, blood pressure 141/89, pulse oximetry 95% on room air. LABORATORY DATA: On the day of discharge WBC 9.6, hemoglobin 12.5, hematocrit 37.7, platelet count 299. Sodium 142, potassium 3.4, chloride 109, carbon dioxide 25. BUN 8, creatinine 0.58, GFR greater than 60, fasting glucose 105. Calcium 8.1, total bilirubin 1.3, AST 66, ALT 447, Alkaline phosphatase 235. Total protein 5.7, albumin 2.8. On the day of admission the patient had a total bilirubin of 5.5, AST 549, ALT 893, alkaline phosphatase 206. Immunologic work up revealed SRINI is negative, antimitochondrial antibody level is in the normal range, antismooth muscle antibody level is in the normal range. Hepatitis panel is negative. Microbiology blood cultures from May 19, 2017 are negative after five days and two sets. IMAGING STUDIES: Abdominal ultrasound on May 17, 2017 shows findings compatible with acute cholecystitis. MRCP on May 17, 2017 shows normal common duct and pancreatic duct calibers. The findings are suggestive of pancreatic divisum. Periportal edema pattern. This is nonspecific and can be seen in acute hepatitis, congestive heart failure, post hepatic trauma and with cholangitis. Cholelithiasis is also noted with marked pericholecystic edema and wall thickening. DISCHARGE MEDICATIONS: - ciprofloxacin 500 mg by mouth twice a day for five days - Flagyl 500 mg by mouth every 8 hours for five days - aspirin 81 mg by mouth daily - lisinopril 40 mg by mouth nightly DISCHARGE INSTRUCTIONS: Discharged home. Activities are tolerated. Diet as tolerated. The patient is recommended to finish her course of antibiotics for five days. The patient has a scheduled appointment with Dr. Mcmullen to arrange for follow and future surgical procedure. DISCHARGE CONDITION: Stable. The patient's discharge took greater than 30 minutes.
== END 2017-05-19 13:41 | disposition home or self-care (01) | DRG 446 ==
LOC: M PED 01:43 → M MS4PR 05-18 06:00
PROVIDERS: ADMIT Internal Medicine; ATTEND Internal Medicine
DX: K80.10 Calculus of gallbladder with chronic cholecystitis without obstruction (principal); F41.9 Anxiety disorder, unspecified; I10 Essential (primary) hypertension; Z79.899 Other long term (current) drug therapy; Z79.82 Long term (current) use of aspirin

== ENCOUNTER → 2017-05-26 | Outpatient (CLI) | payer OTHER ==
[~2017-05-26] MED LIST changes: +ASPI81TA85 PO; +CIPR-249 PO; +FLAG500T PO
[2017-05-26 08:09] LABS: BASO # 0.1 10^3/uL (0.0-0.2); BASO % 0.6 % (0.0-1.0); EOS # 0.1 10^3/uL (0.0-0.50); EOS % 1.8 % (0.0-3.0); IMMATURE GRANULOCYTE % 0.4 % (0-0); LYMPH # 2.5 10^3/uL (1.5-4.5); LYMPH % 32.1 % (24.0-44.0); MEAN CORPUSCULAR HEMOGLOBIN 28.4 pg (27.0-33.0); MEAN CORPUSCULAR VOLUME 88.8 fl (80.0-96.0); MONO # 0.6 10^3/uL (0.0-0.8); MONO % 8.2 % (0.0-5.0); NEUTROPHILS # 4.4 10^3/uL (1.8-7.7); NEUTROPHILS % 56.9 % (36.0-66.0); PLATELET COUNT, AUTOMATED 531 10^3/uL (150-450); RED CELL DISTRIBUTION WIDTH 13.1 % (11.5-14.5); WHITE BLOOD COUNT 7.8 10^3/uL (4.0-10.0)
[2017-05-26 08:25] LABS: ALBUMIN 4.1 GM/DL (3.2-5.2); ALBUMIN/GLOBULIN RATIO 1.14 (1.00-1.93); ALKALINE PHOSPHATASE 253 U/L (45-117); ALT/SGPT 182 U/L (12-78); ANION GAP 7 MEQ/L (8-16); AST/SGOT 29 U/L (7-37); BILIRUBIN,TOTAL 0.7 MG/DL (0.2-1.0); BLOOD UREA NITROGEN 11 MG/DL (7-18); CALCIUM LEVEL 9.3 MG/DL (8.5-10.1); CARBON DIOXIDE LEVEL 26 MEQ/L (21-32); CHLORIDE LEVEL 106 MEQ/L (98-107); CREATININE FOR GFR 0.84 MG/DL (0.55-1.02); GLOMERULAR FILTRATION RATE > 60.0 (>51); GLUCOSE, FASTING 101 MG/DL (70-105); POTASSIUM SERUM 4.8 MEQ/L (3.5-5.1); SODIUM LEVEL 139 MEQ/L (136-145); TOTAL PROTEIN 7.7 GM/DL (6.4-8.2)
== END ==
LOC: M LAB 06:19
PROVIDERS: ATTEND Surgery
DX: R10.11 Right upper quadrant pain (principal)

== ENCOUNTER → 2017-06-02 | Outpatient (CLI) | payer OTHER ==
[2017-06-02 10:19] LABS: BASO % 0.6 % (0.0-1.0); EOS # 0.1 10^3/uL (0.0-0.50); EOS % 1.6 % (0.0-3.0); IMMATURE GRANULOCYTE % 0.1 % (0-0); LYMPH # 2.5 10^3/uL (1.5-4.5); MEAN CORPUSCULAR HEMOGLOBIN 28.7 pg (27.0-33.0); MEAN CORPUSCULAR VOLUME 86.8 fl (80.0-96.0); MONO # 0.4 10^3/uL (0.0-0.8); MONO % 6.3 % (0.0-5.0); NEUTROPHILS # 3.7 10^3/uL (1.8-7.7); NEUTROPHILS % 54.4 % (36.0-66.0); PLATELET COUNT, AUTOMATED 431 10^3/uL (150-450); RED CELL DISTRIBUTION WIDTH 12.7 % (11.5-14.5); WHITE BLOOD COUNT 6.8 10^3/uL (4.0-10.0)
[2017-06-02 10:48] LABS: ALBUMIN 3.9 GM/DL (3.2-5.2); ALBUMIN/GLOBULIN RATIO 1.18 (1.00-1.93); ALKALINE PHOSPHATASE 141 U/L (45-117); ALT/SGPT 45 U/L (12-78); ANION GAP 6 MEQ/L (8-16); AST/SGOT 13 U/L (7-37); BILIRUBIN,TOTAL 0.5 MG/DL (0.2-1.0); BLOOD UREA NITROGEN 16 MG/DL (7-18); CARBON DIOXIDE LEVEL 27 MEQ/L (21-32); CHLORIDE LEVEL 105 MEQ/L (98-107); CREATININE FOR GFR 0.72 MG/DL (0.55-1.02); GLOMERULAR FILTRATION RATE > 60.0 (>51); GLUCOSE, FASTING 92 MG/DL (70-105); POTASSIUM SERUM 4.8 MEQ/L (3.5-5.1); SODIUM LEVEL 138 MEQ/L (136-145); TOTAL PROTEIN 7.2 GM/DL (6.4-8.2)
--- NOTE | 2017-06-02 11:50 | REP ---
CT of the abdomen and pelvis: Studies performed for right upper quadrant abdominal pain is requested without IV or bowel contrast. Comparison is a CT of the abdomen and pelvis with IV and the gallbladder calculi are poorly demonstrated are better visualized on the comparison CT. There also poorly visualized on the comparison CT. contrast dated 04/19/2015. There is a comparison abdominal right upper quadrant ultrasound dated 05/16 2017 from an outside institution. There is no Report to accompany this outside ultrasound, however, upon review of the images. There is cholelithiasis and a right renal cyst. On the CT study today the gallbladder calculi are poorly visualized. They are also poorly visualized on the comparison CT. The gallbladder calculi are better visualized on the comparison ultrasound. There is no gallbladder wall thickening or pericholecystic fluid to suggest acute cholecystitis. There is no intrahepatic or extrahepatic biliary duct dilatation. The unenhanced hepatic parenchyma is homogeneous. The pancreas and spleen are normal size and unremarkable. The adrenals are unremarkable. There is a right renal cortical cyst at the mid pole measuring approximately 80 mm in diameter. There is no hydronephrosis. No renal calculi. The abdominal aorta is unremarkable except for occasional calcified atheroma. There is no bowel distension or obstruction. The mesentery is unremarkable. Pelvis: The appendix is unremarkable. There are numerous diverticula in the descending colon and sigmoid colon without diverticulitis. There is no ascites or adenopathy. The uterus, adnexa and bladder are unremarkable. Impression: There is cholelithiasis. By ultrasound. The gallbladder calculi are poorly demonstrated by CT. There is no biliary duct dilatation, gallbladder wall thickening or pericholecystic fluid. There is no ascites or adenopathy. There is a right renal cyst. There is diverticulosis without diverticulitis. Signed by Russel Chairez MD 06/02/2017 11:41 A
== END ==
LOC: M RAD 09:39
PROVIDERS: ATTEND Surgery
DX: R10.11 Right upper quadrant pain (principal); K80.20 Calculus of gallbladder without cholecystitis without obstruction

== ENCOUNTER 2017-06-24 06:48 | Day surgery (SDC) | payer OTHER ==
[2017-06-24] MEDS: NS 1,000 ML IV (07:00)
[2017-06-24] MEDS ORDERED: PROPOFOL 200 MG/20 ML VIAL As Ordered ×3 (07:39→08:20)
[2017-06-24] MEDS ORDERED: LIDOCAINE 2% INJ 100 MG/5 ML SDV (FOR ANES.) As Ordered (07:39)
== END 2017-06-24 09:10 | disposition home or self-care (01) ==
LOC: M OPP 06:48
DX: Z12.11 Encounter for screening for malignant neoplasm of colon (principal); D12.3 Benign neoplasm of transverse colon; K57.30 Diverticulosis of large intestine without perforation or abscess without bleeding; K44.9 Diaphragmatic hernia without obstruction or gangrene; K21.0 Gastro-esophageal reflux disease with esophagitis; K29.70 Gastritis, unspecified, without bleeding; I10 Essential (primary) hypertension; E78.00 Pure hypercholesterolemia, unspecified; K80.20 Calculus of gallbladder without cholecystitis without obstruction; R10.11 Right upper quadrant pain; Z79.82 Long term (current) use of aspirin; Z79.899 Other long term (current) drug therapy; Z87.891 Personal history of nicotine dependence; Z78.0 Asymptomatic menopausal state; Z80.3 Family history of malignant neoplasm of breast
CPT/HCPCS: 45380

== ENCOUNTER 2017-07-20 07:39 | Day surgery (SDC) | payer OTHER ==
[2017-07-20] MEDS ORDERED: NEOSTIGMINE 10 MG/10 ML VIAL (J2710) (07:40)
[2017-07-20] MEDS: LR 1,000 ML IV (07:45)
[2017-07-20] MEDS ORDERED: fentaNYL 250 MCG/5 ML INJECTION (J3010) As Ordered (08:28)
[2017-07-20] MEDS ORDERED: dexameTHASONE 4 MG/ML 1ML VIAL (J1100) As Ordered (08:28)
[2017-07-20] MEDS ORDERED: MIDAZOLAM INJ 2 MG/2 ML VIAL (J2250) As Ordered (08:28)
[2017-07-20] MEDS ORDERED: ONDANSETRON 4MG/2ML VIAL (J2405) As Ordered (08:28)
[2017-07-20] MEDS ORDERED: ROCURONIUM BROMIDE 50 MG/5 ML VIAL As Ordered (08:28)
[2017-07-20] MEDS ORDERED: LIDOCAINE 2% INJ 100 MG/5 ML SDV (FOR ANES.) As Ordered (08:28)
[2017-07-20] MEDS ORDERED: PROPOFOL 200 MG/20 ML VIAL As Ordered (08:28)
[2017-07-20] MEDS: CEFAZOLIN SOD 1 GM in APPROPRIATE DILUENT 1 EA IV (09:35)
[2017-07-20] MEDS ORDERED: GLYCOPYRROLATE INJ 0.2 MG/ML 2 ML VIAL As Ordered (10:01)
[2017-07-20] MEDS ORDERED: KETOROLAC 60 MG/2 ML VIAL (J1885) As Ordered (10:01)
[2017-07-20] MEDS ORDERED: HYDROmorphone HCL 2 MG/ML 1ML VIAL (J1170) As Ordered (10:01)
[2017-07-20] MEDS ORDERED: NEOSTIGMINE 10 MG/10 ML VIAL (J2710) As Ordered (10:01)
[2017-07-20] MEDS ORDERED: ePHEDrine INJ 50 MG/ML VIAL As Ordered (10:03)
[2017-07-20] MEDS: LIDOCAINE W/EPINEPHRINE 1% 20ML VIAL As Ordered (10:31)
[2017-07-20] MEDS: BUPIVACAINE HCL 0.25% 10 ML VIAL As Ordered (10:32)
[2017-07-20] MEDS: BUPIVACAINE LIPOSOME/PF 1.3% 20 ML VIAL (13.3MG/ML)(EXPAREL) As Ordered (10:36)
[2017-07-20] MEDS ORDERED: LR 1,000 ML IV ×2 (11:15)
[2017-07-20] MEDS ORDERED: PERCOCET 5MG/325MG TAB PO (11:15)
[2017-07-20] MEDS ORDERED: fentaNYL 100 MCG/2 ML INJECTION (J3010) IV (11:15)
[2017-07-20] MEDS ORDERED: MORPHINE 2 MG/ML 1ML SYRINGE IV (11:15)
[2017-07-20] MEDS ORDERED: ONDANSETRON 4MG/2ML VIAL (J2405) IV ×2 (11:15)
[2017-07-20] MEDS ORDERED: NORCO, ANEXSIA 5/325MG TABLET (HYDROcodone/ACETAMINOPHEN) PO (11:15)
== END 2017-07-20 13:10 | disposition home or self-care (01) ==
LOC: M SDC 07:39
DX: K80.10 Calculus of gallbladder with chronic cholecystitis without obstruction (principal); I10 Essential (primary) hypertension; E78.00 Pure hypercholesterolemia, unspecified; K21.9 Gastro-esophageal reflux disease without esophagitis; R29.898 Other symptoms and signs involving the musculoskeletal system; F41.9 Anxiety disorder, unspecified; Z79.899 Other long term (current) drug therapy; Z79.82 Long term (current) use of aspirin; Z78.0 Asymptomatic menopausal state
CPT/HCPCS: 47562

== ENCOUNTER → 2018-03-25 | Outpatient (REF) ==
[2018-03-25 08:40] LABS: HEMATOCRIT 43.6 % (36.0-47.0); HEMOGLOBIN 14.2 g/dl (12.0-15.5); MEAN CORPUSCULAR HGB CONC 32.6 g/dl (32.0-36.5); PLATELET COUNT, AUTOMATED 315 10^3/uL (150-450); RED CELL DISTRIBUTION WIDTH 13.1 % (11.5-14.5); WHITE BLOOD COUNT 8.8 10^3/uL (4.0-10.0)
[2018-03-25 08:49] LABS: APPEARANCE, URINE CLEAR (CLEAR); BACTERIA, URINE AUTO NEGATIVE (NEGATIVE); BILIRUBIN, URINE AUTO NEGATIVE (NEGATIVE); BLOOD, URINE BLOOD NEGATIVE (NEGATIVE); COLOR, URINE YELLOW (YELLOW); GLUCOSE, URINE (UA) AUTO NEGATIVE (NEGATIVE); KETONE, URINE AUTO NEGATIVE (NEGATIVE); LEUKOCYTE ESTERASE, URINE AUTO NEGATIVE (NEGATIVE); MUCUS, URINE SMALL (NEGATIVE); NITRITE, URINE AUTO NEGATIVE (NEGATIVE); PROTEIN, URINE AUTO NEGATIVE (NEGATIVE); RBC, URINE AUTO 0 /HPF (0-3); SPECIFIC GRAVITY URINE AUTO 1.017 (1.002-1.035); SQUAMOUS EPITHELIAL CELL UR AU 0 /HPF (0-6); UROBILINOGEN, URINE AUTO 0.2 mg/dL (0.0-2.0); WBC, URINE AUTO 0 /HPF (0-3)
[2018-03-25 09:14] LABS: ANION GAP 8 MEQ/L (8-16); BLOOD UREA NITROGEN 14 MG/DL (7-18); CALCIUM LEVEL 8.9 MG/DL (8.8-10.2); CARBON DIOXIDE LEVEL 27 MEQ/L (21-32); CHLORIDE LEVEL 106 MEQ/L (98-107); CHOLESTEROL LEVEL 249 MG/DL (<200); CREATININE FOR GFR 0.87 MG/DL (0.55-1.30); GLOMERULAR FILTRATION RATE > 60.0 (>45); GLUCOSE, FASTING 89 MG/DL (70-100); HDL CHOLESTEROL 64 MG/DL (>40); LDL CHOLESTEROL 149 MG/DL (<100); NON-HDL-C 185 MG/DL; POTASSIUM SERUM 4.8 MEQ/L (3.5-5.1); SODIUM LEVEL 141 MEQ/L (136-145); TRIGLYCERIDES LEVEL 179 MG/DL (<150)
== END ==
LOC: M LAB 07:56
DX: Z00.00 Encounter for general adult medical examination without abnormal findings (principal)

== ENCOUNTER → 2018-03-25 | Outpatient (CLI) | payer OTHER | LOC: M LAB 08:02 | DX: N39.0 Urinary tract infection, site not specified (principal) ==

== ENCOUNTER → 2018-03-31 | Outpatient (CLI) | payer OTHER | LOC: M RAD 11:21 | DX: N60.31 Fibrosclerosis of right breast (principal); N60.32 Fibrosclerosis of left breast | CPT/HCPCS: 77066 ==

== ENCOUNTER → 2020-03-08 | Outpatient (REF) ==
[~2020-03-08] MED LIST changes: -ASPI81TA85 PO; +ASPI81TA86 PO; +LISI40TA PO; -LISI40TAB PO; +ZANT300T9 PO
[2020-03-08 09:27] LABS: HEMATOCRIT 46.4 % (36.0-47.0); HEMOGLOBIN 14.8 g/dl (12.0-15.5); MEAN CORPUSCULAR HEMOGLOBIN 28.7 pg (27.0-33.0); MEAN CORPUSCULAR HGB CONC 31.9 g/dl (32.0-36.5); MEAN CORPUSCULAR VOLUME 90.1 fl (80.0-96.0); PLATELET COUNT, AUTOMATED 276 10^3/uL (150-450); RED BLOOD COUNT 5.15 10^6/uL (4.00-5.40); WHITE BLOOD COUNT 8.8 10^3/uL (4.0-10.0)
[2020-03-08 09:29] LABS: APPEARANCE, URINE CLEAR (CLEAR); BACTERIA, URINE AUTO NEGATIVE (NEGATIVE); BILIRUBIN, URINE AUTO NEGATIVE (NEGATIVE); BLOOD, URINE BLOOD 2+ (NEGATIVE); COLOR, URINE YELLOW (YELLOW); GLUCOSE, URINE (UA) AUTO NEGATIVE (NEGATIVE); KETONE, URINE AUTO NEGATIVE (NEGATIVE); LEUKOCYTE ESTERASE, URINE AUTO NEGATIVE (NEGATIVE); MUCUS, URINE SMALL (NEGATIVE); NITRITE, URINE AUTO NEGATIVE (NEGATIVE); PROTEIN, URINE AUTO NEGATIVE (NEGATIVE); RBC, URINE AUTO 5 /HPF (0-3); SPECIFIC GRAVITY URINE AUTO 1.019 (1.002-1.035); SQUAMOUS EPITHELIAL CELL UR AU 0 /HPF (0-6); UROBILINOGEN, URINE AUTO 0.2 mg/dL (0.0-2.0); WBC, URINE AUTO 1 /HPF (0-3)
[2020-03-08 09:44] LABS: BLOOD UREA NITROGEN 18 MG/DL (7-18); CALCIUM LEVEL 8.7 MG/DL (8.8-10.2); CARBON DIOXIDE LEVEL 28 MEQ/L (21-32); CHLORIDE LEVEL 109 MEQ/L (98-107); CHOLESTEROL LEVEL 240 MG/DL (<200); CHOLESTEROL RISK RATIO 4.067 (<5); CREATININE FOR GFR 0.83 MG/DL (0.55-1.30); GLOMERULAR FILTRATION RATE > 60.0 (>45); GLUCOSE, FASTING 91 MG/DL (70-100); HDL CHOLESTEROL 59 MG/DL (>40); LDL CHOLESTEROL 164 MG/DL (<100); NON-HDL-C 181 MG/DL; POTASSIUM SERUM 4.5 MEQ/L (3.5-5.1); SODIUM LEVEL 141 MEQ/L (136-145); TRIGLYCERIDES LEVEL 84 MG/DL (<150)
--- NOTE | 2020-03-09 16:36 | ECGEPIP ---
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
--- NOTE | 2020-03-22 11:39 | REP ---
CHEST X-RAY: CLINICAL: Annual health screening. TECHNIQUE: PA and lateral COMPARISON: 03/25/18 FINDINGS: Mediastinum and cardiac silhouette are normal. Lung yu are clear. No consolidation, effusion or pneumothorax. Skeletal structures are intact. IMPRESSION: Normal chest x-ray. No acute cardiopulmonary process or focal consolidation. MTDD
== END ==
LOC: M LAB 08:47
PROVIDERS: ATTEND Nurse Practitioner Adult Health
DX: Z02.89 Encounter for other administrative examinations (principal)

== ENCOUNTER → 2020-03-08 | Outpatient (REF) ==
--- NOTE | 2020-03-08 08:54 | REPMRS ---
Patient History The patient states she has not had a clinical breast exam in over a year. Family history of breast cancer at age 60 in mother, unknown cancer at age 55 in sister, pancreatic cancer at age 53 in maternal aunt. Digital Woman Screen Mammo: March 08, 2020 - Exam #: [id number] Bilateral CC and MLO view(s) were taken. Technologist: Analisa Murdock, Technologist Prior study comparison: March 31, 2018, digital mammo diagnostic bilateral, performed at [facility]. March 02, 2016, bilateral digital mammo screening bilat, performed at [facility]. February 28, 2015, bilateral digital mammo screening bilat, performed at [facility]. FINDINGS: There are scattered fibroglandular densities. The Volpara volumetric breast density category is:B. There has been no change in the appearance of the mammogram from the prior studies. There is a mild amount of scattered fibroglandular density which is fairly symmetric. There is no interval development of dominant mass, architectural distortion, or grouped microcalcification suggestive of malignancy. 3-D tomosynthesis shows no additional findings. Assessment: BI-RADS/ACR category 1 mammogram. Negative Mammogram. Recommendation Routine screening mammogram of both breasts in 1 year (for women over age 40). This patient's Lifetime Breast Cancer Risk is estimated at 14.5 %. This mammogram was interpreted with the aid of an FDA-approved computer-aided dectection system. Electronically Signed By: Herb Cerrato MD 03/08/20 0853
== END ==
LOC: M WHC 08:09
PROVIDERS: ATTEND Neuromusculoskeletal Medicine & OMM
DX: Z12.31 Encounter for screening mammogram for malignant neoplasm of breast (principal); Z80.3 Family history of malignant neoplasm of breast

== ENCOUNTER → 2020-06-10 | Outpatient (CLI) | payer OTHER ==
[2020-06-10 18:07] LABS: HEMATOCRIT 40.4 % (36.0-47.0); HEMOGLOBIN 12.8 g/dl (12.0-15.5); MEAN CORPUSCULAR HEMOGLOBIN 28.1 pg (27.0-33.0); MEAN CORPUSCULAR HGB CONC 31.7 g/dl (32.0-36.5); MEAN CORPUSCULAR VOLUME 88.6 fl (80.0-96.0); PLATELET COUNT, AUTOMATED 305 10^3/uL (150-450); RED BLOOD COUNT 4.56 10^6/uL (4.00-5.40); WHITE BLOOD COUNT 8.7 10^3/uL (4.0-10.0)
== END ==
LOC: M LAB 17:37
PROVIDERS: ATTEND Surgery
DX: K57.30 Diverticulosis of large intestine without perforation or abscess without bleeding (principal)

== ENCOUNTER → 2021-04-18 | Outpatient (CLI) | payer OTHER ==
[~2021-04-18] MED LIST changes: -LISI40TA PO; +LISI40TA4 PO
[2021-04-18 10:11] LABS: THYROID STIMULATING HORMONE 0.991 uIU/ML (0.358-3.740)
[2021-04-18 12:29] LABS: TOTAL 25(OH) VITAMIN D 54.4 NG/ML (30.0-100.0)
[2021-04-19 15:09] LABS: Lyme Disease IgG/IgM Antibodie <0.91 ISR (0.00-0.90); Lyme Disease IgM Ab Quantitati <0.80 index (0.00-0.79)
== END ==
LOC: M LAB 08:20
PROVIDERS: ATTEND Family Medicine
DX: R31.9 Hematuria, unspecified (principal)

== ENCOUNTER → 2021-04-18 | Outpatient (REF) ==
--- NOTE | 2021-04-18 08:55 | REP ---
INDICATION: ANNUAL ASSESSMENT, EKG AND LABS AFTER. COMPARISON: Multiple the latest 03/08/2020 TECHNIQUE: PA and lateral FINDINGS: The superior mediastinal structures are midline. The cardiac silhouette is unremarkable in size, shape, and position. The diaphragmatic surfaces of the lungs are regular, and the costophrenic angles are clear. The pulmonary yu are clear. The imaged osseous structures are intact. IMPRESSION: There is no acute cardiopulmonary disease. <Electronically signed by Edvin Nunez > 04/18/21 [id number]
[2021-04-18 09:36] LABS: APPEARANCE, URINE CLEAR (CLEAR); BACTERIA, URINE AUTO 1+ (NEGATIVE); BILIRUBIN, URINE AUTO NEGATIVE (NEGATIVE); BLOOD, URINE BLOOD 2+ (NEGATIVE); COLOR, URINE YELLOW (YELLOW); GLUCOSE, URINE (UA) AUTO NEGATIVE (NEGATIVE); KETONE, URINE AUTO NEGATIVE (NEGATIVE); LEUKOCYTE ESTERASE, URINE AUTO NEGATIVE (NEGATIVE); MUCUS, URINE SMALL (NEGATIVE); NITRITE, URINE AUTO NEGATIVE (NEGATIVE); PROTEIN, URINE AUTO NEGATIVE (NEGATIVE); RBC, URINE AUTO 2 /HPF (0-3); SPECIFIC GRAVITY URINE AUTO 1.015 (1.002-1.035); SQUAMOUS EPITHELIAL CELL UR AU 3 /HPF (0-6); UROBILINOGEN, URINE AUTO 0.2 mg/dL (0.0-2.0); WBC, URINE AUTO 0 /HPF (0-3)
[2021-04-18 09:42] LABS: HEMATOCRIT 44.6 % (36.0-47.0); HEMOGLOBIN 14.1 g/dl (12.0-15.5); MEAN CORPUSCULAR HEMOGLOBIN 28.5 pg (27.0-33.0); MEAN CORPUSCULAR HGB CONC 31.6 g/dl (32.0-36.5); MEAN CORPUSCULAR VOLUME 90.3 fl (80.0-96.0); PLATELET COUNT, AUTOMATED 320 10^3/uL (150-450); RED BLOOD COUNT 4.94 10^6/uL (4.00-5.40); WHITE BLOOD COUNT 8.1 10^3/uL (4.0-10.0)
[2021-04-18 10:04] LABS: BLOOD UREA NITROGEN 19 MG/DL (7-18); CALCIUM LEVEL 9.2 MG/DL (8.8-10.2); CARBON DIOXIDE LEVEL 26 MEQ/L (21-32); CHLORIDE LEVEL 107 MEQ/L (98-107); CHOLESTEROL LEVEL 238 MG/DL (<200); CHOLESTEROL RISK RATIO 3.838 (<5); CREATININE FOR GFR 0.83 MG/DL (0.55-1.30); GLOMERULAR FILTRATION RATE > 60.0 (>45); GLUCOSE, FASTING 90 MG/DL (70-100); HDL CHOLESTEROL 62 MG/DL (>40); LDL CHOLESTEROL 157 MG/DL (<100); NON-HDL-C 176 MG/DL; POTASSIUM SERUM 4.4 MEQ/L (3.5-5.1); SODIUM LEVEL 139 MEQ/L (136-145); TRIGLYCERIDES LEVEL 96 MG/DL (<150)
[2021-04-18 12:31] LABS: HEPATITIS B SURFACE ANTIBODY POSITIVE (POSITIVE)
--- NOTE | 2021-04-19 17:59 | ECGEPIP ---
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
== END ==
LOC: M RAD 07:59
PROVIDERS: ATTEND Family Medicine
DX: Z02.89 Encounter for other administrative examinations (principal)

== ENCOUNTER → 2021-04-18 | Outpatient (REF) ==
--- NOTE | 2021-04-18 09:46 | REPMRS ---
Patient History The patient states she has not had a clinical breast exam in over a year. Family history of breast cancer at age 60 in mother, unknown cancer at age 55 in sister, pancreatic cancer at age 53 in maternal aunt. Patient states no breast complaints today. Patient has signed MRS History Sheet. Digital Woman Screen Mammo: April 18, 2021 - Exam #: [id number] Bilateral CC and MLO view(s) were taken. Technologist: Analisa Murdock, Technologist Prior study comparison: March 08, 2020, bilateral digital woman screen mammo performed at [facility] and [facility]. March 31, 2018, digital mammo diagnostic bilateral, performed at [facility]. 2017, bilateral diagnostic 3D/tomosynthesis, performed at [facility]. FINDINGS: There are scattered fibroglandular densities. Screening. Digital screening (2D) mammography was performed bilaterally in the CC and MLO projections. Additionally, breast tomosynthesis (3D mammography) was performed bilaterally in the CC and MLO projections. Todays exam was compared to the prior exam/exams. By history, the patient has no complaints of a palpable breast abnormality or other significant breast complaints. The Volpara volumetric breast density category is B, there are scattered areas of fibroglandular densities. The breasts are unchanged in size and shape. There are no christine-soft tissue densities or spiculated masses. There is no internal architectural distortion. Once again, stable benign appearing calcifications are seen.There are no suspicious christine-calcific clusters. Skin thickening or nipple retraction is not present. IMPRESSION: BI-RADS Category 2- Benign Findings. There is no evidence of malignant alteration of the breasts. Followup examination recommended in one year. The lifetime Tyrer-Cuzick score is 13.9% This mammogram was read with the assistance of TopiVert,an FDA approved computer aided detection system for mammography. Negative x-ray reports should not delay surgical consultation if a dominant or clinically suspicious mass is present. Not all breast cancers can be identified by mammography. Therefore, we recommend that you continue to perform regular breast self-examination and physical examination and then promptly contact your physician of any concerns or changes. Adenosis and dense breasts may obscure an underlying neoplasm. No significant changes when compared with prior studies. Assessment: BI-RADS/ACR category 2 mammogram. Benign Findings. Recommendation Routine screening mammogram of both breasts in 1 year. Electronically Signed By: Isidro Leong MD 04/18/21 0934
== END ==
LOC: M WHC 07:16
PROVIDERS: ATTEND Family Medicine
DX: Z12.31 Encounter for screening mammogram for malignant neoplasm of breast (principal)

== ENCOUNTER → 2021-05-08 | Outpatient (REF) | LOC: M LABSMTC 10:21 | PROVIDERS: ATTEND Family Medicine | DX: Z11.52 Encounter for screening for COVID-19 (principal); Z20.822 Contact with and (suspected) exposure to COVID-19 ==

== ENCOUNTER → 2021-05-12 | Outpatient (REF) | LOC: M LABSMTC 09:12 | PROVIDERS: ATTEND Family Medicine | DX: Z20.822 Contact with and (suspected) exposure to COVID-19 (principal) ==

== ENCOUNTER → 2021-05-29 | Outpatient (REF) | LOC: M EMP 08:34 | PROVIDERS: ATTEND Family Medicine | DX: Z11.52 Encounter for screening for COVID-19 (principal) ==

== ENCOUNTER → 2021-06-13 | Outpatient (REF) ==
[2021-06-13 15:30] LABS: RSV AMPLIFICATION NEGATIVE (NEGATIVE)
== END ==
LOC: M LABSMTC 13:40
PROVIDERS: ATTEND Family Medicine
DX: Z11.52 Encounter for screening for COVID-19 (principal); Z20.822 Contact with and (suspected) exposure to COVID-19

== ENCOUNTER → 2021-11-03 | Outpatient (CLI) | payer OTHER | LOC: M CARPUL 08:16 | PROVIDERS: ATTEND Family Medicine | DX: R01.1 Cardiac murmur, unspecified (principal) ==

== ENCOUNTER → 2022-04-20 | Outpatient (REF) ==
[2022-04-20 08:18] LABS: HEMATOCRIT 43.2 % (36.0-47.0); MEAN CORPUSCULAR HEMOGLOBIN 29.3 pg (27.0-33.0); MEAN CORPUSCULAR HGB CONC 32.4 g/dl (32.0-36.5); MEAN CORPUSCULAR VOLUME 90.4 fl (80.0-96.0); PLATELET COUNT, AUTOMATED 304 10^3/uL (150-450); RED BLOOD COUNT 4.78 10^6/uL (4.00-5.40); WHITE BLOOD COUNT 8.5 10^3/uL (4.0-10.0)
[2022-04-20 08:35] LABS: APPEARANCE, URINE MANUAL CLEAR (CLEAR); COLOR, URINE MANUAL YELLOW (YELLOW)
[2022-04-20 08:36] LABS: BILIRUBIN, URINE MANUAL NEGATIVE (NEGATIVE); BLOOD URINE MANUAL POSITIVE (NEGATIVE); GLUCOSE, URINE (UA) MANUAL NEGATIVE (NEGATIVE); KETONE, URINE MANUAL NEGATIVE (NEGATIVE); LEUKOCYTE ESTERASE, URINE MAN NEGATIVE (NEGATIVE); NITRITE, URINE MANUAL NEGATIVE (NEGATIVE); PROTEIN, URINE MANUAL NEGATIVE (NEGATIVE); UROBILINOGEN, URINE MANUAL NORMAL (NORMAL)
[2022-04-20 08:49] LABS: BACTERIA, URINE NONE SEEN; HYALINE CAST, URINE NONE SEEN /lpf (0-1); MUCUS, URINE SMALL AMOUNT (NEGATIVE); SQUAMOUS EPITHELIAL CELL URINE SMALL AMOUNT /hpf (SMALL AMT); WBC, URINE NONE SEEN /hpf (0-3)
[2022-04-20 08:51] LABS: CALCIUM LEVEL 9.2 MG/DL (8.8-10.2); CHOLESTEROL RISK RATIO 4.114 (<5); CREATININE FOR GFR 1.05 MG/DL (0.55-1.30); GLOMERULAR FILTRATION RATE 56.2 (>45); POTASSIUM SERUM 4.2 MEQ/L (3.5-5.1)
== END ==
LOC: M LAB 07:04
PROVIDERS: ATTEND Family Medicine
DX: Z02.89 Encounter for other administrative examinations (principal)

== ENCOUNTER → 2022-04-20 | Outpatient (CLI) | payer OTHER | LOC: M WHC 08:25 | PROVIDERS: ATTEND Family Medicine | DX: Z53.9 Procedure and treatment not carried out, unspecified reason (principal) ==

== ENCOUNTER → 2022-04-20 | Outpatient (CLI) | payer OTHER | LOC: M LAB 07:09 | PROVIDERS: ATTEND Urology | DX: Z02.1 Encounter for pre-employment examination (principal) ==

== ENCOUNTER → 2022-04-20 | Outpatient (REF) | LOC: M WHC 08:29 | PROVIDERS: ATTEND Family Medicine | DX: Z12.31 Encounter for screening mammogram for malignant neoplasm of breast (principal); Z80.3 Family history of malignant neoplasm of breast; Z80.8 Family history of malignant neoplasm of other organs or systems ==

== ENCOUNTER → 2022-06-05 | Outpatient (CLI) | payer OTHER ==
[2022-06-05 19:28] LABS: BLOOD UREA NITROGEN 23 MG/DL (9-23); CALCIUM LEVEL 9.4 MG/DL (8.3-10.6); CARBON DIOXIDE LEVEL 26 MMOL/L (20-31); CHLORIDE LEVEL 107 MMOL/L (98-107); CREATININE FOR GFR 0.86 MG/DL (0.55-1.30); GLOMERULAR FILTRATION RATE > 60.0 (>45); GLUCOSE, FASTING 88 MG/DL (74-106); POTASSIUM SERUM 4.3 MMOL/L (3.5-5.1); SODIUM LEVEL 140 MMOL/L (136-145)
== END ==
LOC: M LAB 18:33
PROVIDERS: ATTEND Physician Assistant
DX: R31.21 Asymptomatic microscopic hematuria (principal)

== ENCOUNTER → 2022-06-05 | Outpatient (REF) | payer OTHER ==
[2022-06-05 13:38] LABS: APPEARANCE, URINE MANUAL CLEAR (CLEAR); COLOR, URINE MANUAL YELLOW (YELLOW); SPECIFIC GRAVITY,URINE MANUAL 1.015 (1.002-1.035)
[2022-06-05 13:39] LABS: BILIRUBIN, URINE MANUAL NEGATIVE (NEGATIVE); BLOOD URINE MANUAL TRACE (NEGATIVE); GLUCOSE, URINE (UA) MANUAL NEGATIVE (NEGATIVE); KETONE, URINE MANUAL NEGATIVE (NEGATIVE); LEUKOCYTE ESTERASE, URINE MAN NEGATIVE (NEGATIVE); NITRITE, URINE MANUAL NEGATIVE (NEGATIVE); PROTEIN, URINE MANUAL NEGATIVE (NEGATIVE); UROBILINOGEN, URINE MANUAL NORMAL (NORMAL)
[2022-06-05 14:08] LABS: BACTERIA, URINE SMALL AMOUNT; HYALINE CAST, URINE NONE SEEN /lpf (0-1); SQUAMOUS EPITHELIAL CELL URINE SMALL AMOUNT /hpf (SMALL AMT); WBC, URINE NONE SEEN /hpf (0-3)
== END ==
LOC: M SMT 12:52
PROVIDERS: ATTEND Physician Assistant
DX: R31.21 Asymptomatic microscopic hematuria (principal)

== ENCOUNTER → 2022-06-23 | Outpatient (CLI) | payer OTHER ==
[~2022-06-23] MED LIST changes: +ISOVUE-370 76% 100ML VIAL As Ordered ONE
== END ==
LOC: M RAD 09:44
PROVIDERS: ATTEND Physician Assistant
DX: Q61.02 Congenital multiple renal cysts (principal); K44.9 Diaphragmatic hernia without obstruction or gangrene; R31.21 Asymptomatic microscopic hematuria; Z90.49 Acquired absence of other specified parts of digestive tract

== ENCOUNTER → 2022-12-14 | Outpatient (CLI) | payer OTHER ==
[~2022-12-14] MED LIST changes: -ISOVUE-370 76% 100ML VIAL As Ordered ONE
== END ==
LOC: M LAB 09:38
PROVIDERS: ATTEND Specialist
DX: Z80.0 Family history of malignant neoplasm of digestive organs (principal)